=== PATIENT | male | born 1950 | race Caucasian/White ===

== ENCOUNTER 2017-03-02 06:36 | Day surgery (SDC) | payer OTHER ==
--- NOTE | ~2017-03-02 | EGD ---
EGD REPORT [facility] [address] [place]. [address] NAME: CELESTINE LIRA : [birth year] STATUS : [facility]#: [id number] AGE: 66 ADM/REG DATE : 03/02/17 MR#: [id number] REPORT SERV DATE: 03/02/17 DICTATED BY: BLANCA GOODMAN DATE: 03/02/17 REPORT STATUS : Draft TRANSCRIBED BY: [facility] DATE: 03/02/17 Endoscopy Center Patient Name: Celestine Lira. Date of : 1950 Attending MD: BLANCA GOODMAN MD Procedure Date No Time: 03/02/2017 Procedure: Upper GI endoscopy Indications: Dysphagia, Heartburn; Prilosec 20mg prn. Patient Profile: Informed consent was obtained from the patient by me prior to the procedure. Risks, benefits, and alternatives were discussed including the risk of bleeding, perforation, infection, reaction to medicine, missed lesion, and cardiopulmonary complications. Referring MD: KATY DENNY MD Medicines: Monitored Anesthesia Care; abrupt hypoxia after initiating exam; endoscope immediately withdrawn and patient intubated; see AA notes. Complications: No immediate complications. Procedure: Pre-Anesthesia Assessment: - ASA Grade Assessment: IV - A patient with severe systemic disease that is a constant threat to life. After obtaining informed consent, the endoscope was passed under direct vision. Throughout the procedure, the patient's blood pressure, pulse, and oxygen saturations were monitored continuously. The GIF H190 [id number] was introduced through the mouth, and advanced to the second part of duodenum. The endoscope was withdrawn with careful examination all mucosal surfaces including retroflexion stomach. The upper GI endoscopy was accomplished without difficulty. The patient tolerated the procedure well. Findings: The 2nd part of the duodenum was normal. Biopsies were taken with a cold forceps for histology. The first part of the duodenum was normal. The entire examined stomach was normal. LA Grade A (one or more mucosal breaks less than 5 mm, not extending between tops of 2 mucosal folds) esophagitis was found, no nodules or Multani's. The examined esophagus was normal. 48F Savary dilation performed over guidewire held in antrum; no resistance to dilation; endoscopic visualization afterwards no mucosal breaks. Biopsies were taken with a cold forceps for histology. EGD REPORT [place] [id number] [facility] [place]. [address] NAME: CELESTINE LIRA : [birth year] STATUS : [facility]#: [id number] AGE: 66 ADM/REG DATE : 03/02/17 MR#: [id number] REPORT SERV DATE: 03/02/17 DICTATED BY: BLANCA GOODMAN DATE: 03/02/17 REPORT STATUS : Draft TRANSCRIBED BY: [employer] DATE: 03/02/17 Impression: - Normal 2nd part of the duodenum. Biopsied. - Normal first part of the duodenum. - Normal stomach. - LA Grade A reflux esophagitis. - Normal esophagus. Dilated. Biopsied. Recommendation: - Patient has a contact number available for emergencies. The signs and symptoms of potential delayed complications were discussed with the patient. Return to normal activities tomorrow. Written discharge instructions were provided to the patient. - Regular diet. - Continue present medications. - Await pathology results. - Increase Prilosec to 20mg bid. Procedure Code(s): --- Professional --- 61591, Esophagogastroduodenoscopy, flexible, transoral; with insertion of guide wire followed by passage of dilator(s) through esophagus over guide wire 77209, Esophagogastroduodenoscopy, flexible, transoral; with biopsy, single or multiple Diagnosis Code(s): --- Professional --- K21.0, Gastro-esophageal reflux disease with esophagitis R13.10, Dysphagia, unspecified R12, Heartburn CPT copyright 2013 [employer]. All rights reserved. The codes documented in this report are preliminary and upon program aide review may be revised to meet current compliance requirements. BLANCA GOODMAN MD 03/02/2017 9:13 AM This report has been signed electronically. Number of Addenda: 0 Note Initiated On: 03/02/2017 8:32 AM Scope Withdrawal Time 0 hours 0 minutes 0 seconds [id number] [id number]
--- NOTE | ~2017-03-02 | EGD ---
EGD REPORT [facility] [address] [place]. [address] NAME: CELESTINE LIRA : [birth year] STATUS : [facility]#: [id number] AGE: 66 ADM/REG DATE : 03/02/17 MR#: [id number] REPORT SERV DATE: 03/02/17 DICTATED BY: BLANCA GOODMAN DATE: 03/02/17 REPORT STATUS : Draft TRANSCRIBED BY: [facility] DATE: 03/02/17 Endoscopy Center Patient Name: Celestine Lira Date of : 1950 Attending MD: BLANCA GOODMAN MD Procedure Date No Time: 03/02/2017 Procedure: Colonoscopy Indications: Iron deficiency anemia; FHx negative. Patient Profile: Informed consent was obtained from the patient by me prior to the procedure. Risks, benefits, and alternatives were discussed including the risk of bleeding, perforation, infection, reaction to medicine, missed lesion, and cardiopulmonary complications. Referring MD: KATY DENNY MD Medicines: Monitored Anesthesia Care Complications: No immediate complications. Procedure: Pre-Anesthesia Assessment: - ASA Grade Assessment: IV - A patient with severe systemic disease that is a constant threat to life. After I obtained informed consent, the scope was passed under direct vision. Throughout the procedure, the patient's blood pressure, pulse, and oxygen saturations were monitored continuously. The PCF [id number] was introduced through the anus and advanced to the cecum, identified by appendiceal orifice and ileocecal valve. The colonoscope was slowly withdrawn with careful examination all mucosal surfaces including specific attention around flexures and tip deflection behind folds; retroflexion performed in rectum. The colonoscopy was performed without difficulty. The patient tolerated the procedure well. The quality of the bowel preparation was adequate. The ileocecal valve, appendiceal orifice and rectum were photographed. Findings: Two sessile polyps were found in the rectum. The polyps were 3 to 5 mm in size. These polyps were removed with a cold biopsy forceps. Resection and retrieval were complete. Multiple medium-mouthed diverticula were found in the sigmoid colon and in the descending colon. Impression: - Two 3 to 5 mm polyps in the rectum. Resected and retrieved. - Diverticulosis in the sigmoid colon and in the descending colon. EGD REPORT [address] [address] NAME: CELESTINE LIRA : [birth year] STATUS : [facility] [place] PAT#: [id number] AGE: 66 ADM/REG DATE : 03/02/17 MR#: [id number] REPORT SERV DATE: 03/02/17 DICTATED BY: BLANCA GOODMAN DATE: 03/02/17 REPORT STATUS : Draft TRANSCRIBED BY: [employer] DATE: 03/02/17 Recommendation: - Patient has a contact number available for emergencies. The signs and symptoms of potential delayed complications were discussed with the patient. Return to normal activities tomorrow. Written discharge instructions were provided to the patient. - Regular diet. - Continue present medications. - Await pathology results. - Repeat colonoscopy is not recommended for surveillance based on comorbidities, particularly pulmonary status. - LIZ very mild and likely due to esophagitis; no further workup at this time. Procedure Code(s): --- Professional --- 86567, Colonoscopy, flexible, proximal to splenic flexure; with biopsy, single or multiple Diagnosis Code(s): --- Professional --- K62.1, Rectal polyp K57.30, Diverticulosis of large intestine without perforation or abscess without bleeding D50.9, Iron deficiency anemia, unspecified CPT copyright 2013 [employer]. All rights reserved. The codes documented in this report are preliminary and upon drafter civil review may be revised to meet current compliance requirements. BLANCA GOODMAN MD 03/02/2017 9:44 AM This report has been signed electronically. Number of Addenda: 0 Note Initiated On: 03/02/2017 8:33 AM Scope Withdrawal Time 0 hours 12 minutes 7 seconds [address] [place] [address]
[~2017-03-02 06:36] MED LIST: ALEVE220 MG PO; GLUCOPHAGE1000 MG PO; GLUCOTROL5 PO; LIPITOR20 PO; PRILOSEC PO; TRAZ50 PO; ZESTORETIC1 TA1 PO; ZESTRIL10 MG PO
[2017-03-02 10:15] LABS: BE (BASE EXCESS) 14.1 MEQ/L (0 +/- 2.5); CARBOXYHEMOGLOBIN 1.7 % (0-3); HCO3 (ACTUAL BICARBONATE) 42.5 MEQ/L (23-27); HEMOBLOGIN CONTENT 13.9 G/DL (14-18); INSTRUMENT SERIAL # 11843; METHEMOGLOBIN 0.3 % (0-3); O2 CONTENT 17.7 VOL% (18-24); PCO2 (CO2 TENSION) 71 MMHG (35-45); PO2 (O2 TENSION) 66 MMHG (79-93); SAMPLE Arterial; pH 7.39 (7.37-7.43)
[2017-03-02 10:16] LABS: ALLENS TEST Pos
== END 2017-03-02 12:15 | disposition home or self-care (01) ==
LOC: DMU 06:36
PROVIDERS: Internal Medicine Gastroenterology
PROC: 0D758ZZ Dilation of Esophagus, Via Natural or Artificial Opening Endoscopic (ICD-10-PCS; 2017-03-02)
PROC: 0DBP8ZZ Excision of Rectum, Via Natural or Artificial Opening Endoscopic (ICD-10-PCS; principal; 2017-03-02 08:00)
PROC: 0DB98ZX Excision of Duodenum, Via Natural or Artificial Opening Endoscopic, Diagnostic (ICD-10-PCS; 2017-03-02 08:00)
PROC: 0DB58ZX Excision of Esophagus, Via Natural or Artificial Opening Endoscopic, Diagnostic (ICD-10-PCS; 2017-03-02 08:00)
DX: K62.1 Rectal polyp (principal); K57.30 Diverticulosis of large intestine without perforation or abscess without bleeding; K21.0 Gastro-esophageal reflux disease with esophagitis; J44.9 Chronic obstructive pulmonary disease, unspecified; E11.9 Type 2 diabetes mellitus without complications; I10 Essential (primary) hypertension; M06.9 Rheumatoid arthritis, unspecified; F17.210 Nicotine dependence, cigarettes, uncomplicated; Z79.84 Long term (current) use of oral hypoglycemic drugs; Z79.1 Long term (current) use of non-steroidal anti-inflammatories (NSAID); Z79.899 Other long term (current) drug therapy; Z98.890 Other specified postprocedural states
CPT/HCPCS: 36600; 71010; 82805; 82962; 88305; 94640; J0330